=== PATIENT | female | born 1940 | race Caucasian/White ===

== ENCOUNTER → 2021-07-11 | Day surgery (SDC) | payer MEDICARE ==
[~2021-07-11] VITALS: Ht 152.4 cm
[~2021-07-11] MED LIST: ASPIRIN ADULT L81 M2 PO; FISH OIL 1,0001 EAC1 PO; LIPITOR40 MG PO; LISINOPRIL-HCT1 EACH PO; METFORMIN HYDR750 MG PO; MULTI-VITAMIN1 EACH PO
[2021-07-11 06:30] VITALS: BP 130/63
[2021-07-11 08:00] VITALS: BP 108/57
[2021-07-11 08:15] VITALS: BP 109/56
[2021-07-11 08:30] VITALS: BP 123/68
== END | disposition home or self-care (01) ==
LOC: SDC 07-06 11:00
PROVIDERS: ATTEND Ophthalmology
DX: H25.812 Combined forms of age-related cataract, left eye (principal); I10 Essential (primary) hypertension; E11.9 Type 2 diabetes mellitus without complications; E78.00 Pure hypercholesterolemia, unspecified; Z90.710 Acquired absence of both cervix and uterus; Z98.890 Other specified postprocedural states; Z79.899 Other long term (current) drug therapy

== ENCOUNTER → 2021-08-08 | Day surgery (SDC) | payer MEDICARE ==
[~2021-08-08] VITALS: Ht 157.4 cm; Wt 74.8 kg
[2021-08-08 07:06] VITALS: BP 150/72
[2021-08-08 08:33] VITALS: BP 116/64
[2021-08-08 08:48] VITALS: BP 112/66
[2021-08-08 09:00] VITALS: BP 111/64
== END | disposition home or self-care (01) ==
LOC: SDC 08-03 08:45
PROVIDERS: ATTEND Ophthalmology
DX: E11.36 Type 2 diabetes mellitus with diabetic cataract (principal); H25.811 Combined forms of age-related cataract, right eye; I10 Essential (primary) hypertension; E78.00 Pure hypercholesterolemia, unspecified; Z79.899 Other long term (current) drug therapy